=== PATIENT | female | born 1980 | race Caucasian/White ===

== ENCOUNTER 2018-04-24 05:37 | Inpatient (IN) | END 2018-04-28 18:20 | disposition home or self-care (01) | DRG 455 ==

== ENCOUNTER 2019-06-06 05:13 | Day surgery (SDC) | payer OTHER ==
[2019-05-29 13:36] VITALS: BMI 27.9
[~2019-06-06] VITALS: Ht 160 cm; Wt 68.7 kg
[2019-06-06] VITALS (13 sets, daily range): BP systolic 105–120; BP diastolic 58–71; PULSE 73–88; RESP 17–18; Ht 160 cm; Wt 68.7 kg
[~2019-06-06 05:13] MED LIST: AMIT75TA2 PO; CARI350T PO; CARI350T29 PO; GABA-526 PO; GABA-528 PO; HYDR-4011 PO; MELO15TA30 PO; MELO7.5O PO
[2019-06-06] MEDS ORDERED: GELATIN SIZE 100 SPONGE ONE (06:52)
[2019-06-06] MEDS ORDERED: THROMBIN 5000 UNIT (RECOTHROM) VIAL ONE (06:53)
[2019-06-06] MEDS ORDERED: BUPIVACAINE 0.25% (MPF) 30 ML INJ ONE (06:53)
[2019-06-06] MEDS ORDERED: POLYMYXIN/BACITRACIN 1L IRRIG ONE (06:53)
[2019-06-06] MEDS ORDERED: LACTATED RINGER'S 1,000 ML (ENTER RATE) IV ONE (07:00)
[2019-06-06] MEDS ORDERED: LABETALOL HCL 20MG INJ IV PRN (07:00)
[2019-06-06] MEDS ORDERED: EPHEDrine 25 MG/5 ML SYG IV PRN (07:00)
[2019-06-06] MEDS ORDERED: METOCLOPRAMIDE 10 MG INJ IV PRN (07:00)
[2019-06-06] MEDS ORDERED: CEFAZOLIN 2 GM/50 ML (PMX) 50 ML IVPB ONE (07:00)
[2019-06-06] MEDS ORDERED: FENTAnyl 50 MCG/ML VIAL IV PRN ×2 (07:00)
[2019-06-06] MEDS ORDERED: MEPERIDINE 25 MG INJ IV PRN (07:00)
[2019-06-06] MEDS ORDERED: hydrALAzine 20 MG INJ IV PRN (07:00)
[2019-06-06] MEDS ORDERED: ONDANSETRON 4 MG INJ IV PRN (07:00)
[2019-06-06] MEDS ORDERED: HYDROmorphONE 1 MG/5 ML IV SYRINGE IV PRN ×3 (07:00)
[2019-06-06] MEDS ORDERED: DIPHENHYDRAMINE 50 MG INJ IV PRN (07:00)
[2019-06-06] MEDS ORDERED: PHENYLephrine (100 MCG/ML) 10ML SYG ONE (07:08)
[2019-06-06] MEDS ORDERED: ROCURONIUM 50 MG INJ ONE ×2 (07:09→07:29)
[2019-06-06] MEDS ORDERED: MIDAZOLAM 1 MG/ML 2 ML INJ ONE (07:09)
[2019-06-06] MEDS ORDERED: PROPOFOL 20 ML ONE (07:09)
[2019-06-06] MEDS ORDERED: FENTAnyl 50 MCG/ML VIAL ONE ×2 (07:09→07:34)
[2019-06-06] MEDS ORDERED: METOCLOPRAMIDE 10 MG INJ ONE (07:29)
[2019-06-06] MEDS ORDERED: ONDANSETRON 4 MG INJ ONE (07:29)
[2019-06-06] MEDS ORDERED: DEXAMETHASONE 4 MG/ML 5 ML INJ ONE (07:29)
[2019-06-06] MEDS ORDERED: LABETALOL HCL 20MG INJ ONE (07:33)
[2019-06-06] MEDS ORDERED: SUGAMMADEX SODIUM 200 MG/2 ML VIAL IV ONE (07:58)
[2019-06-06] MEDS ORDERED: LACTATED RINGER'S 1,000 ML IV SCH (08:42)
[2019-06-06] MEDS ORDERED: OXYCODONE/ACETAMINOPHEN (5/325) TAB PO PRN ×2 (09:00)
[2019-06-06] MEDS: FENTAnyl 50 MCG/ML VIAL IV PRN ×2 (09:18→09:33)
[2019-06-06] MEDS: OXYCODONE/ACETAMINOPHEN (5/325) TAB PO PRN ×2 (09:36→11:45)
== END 2019-06-06 12:22 | disposition home or self-care (01) ==
LOC: SDS 05:13 → UNDOADMIN 05:13 → REC 05:13 → EDSTATUS 07:00 → SDS 12:22 → UNDODISIN 12:22
PROVIDERS: ATTEND Orthopaedic Surgery
DX: T84.84XA Pain due to internal orthopedic prosthetic devices, implants and grafts, initial encounter (principal); Y79.1 Therapeutic (nonsurgical) and rehabilitative orthopedic devices associated with adverse incidents; Y83.8 Other surgical procedures as the cause of abnormal reaction of the patient, or of later complication, without mention of misadventure at the time of the procedure; J45.909 Unspecified asthma, uncomplicated
CPT/HCPCS: 22852; 84703; 86850; 86900; 86901; 86920; 88300; 88304; J0690; J1100; J1170; J2175; J2250; J2370; J2405; J2765; J3010; J7120